=== PATIENT | female | born 1960 | race African-American/Black ===

== ENCOUNTER 2017-04-06 11:37 | Day surgery (SDC) | payer OTHER ==
[2017-04-01 11:27] VITALS: BMI 38.9
[2017-04-06] MEDS ORDERED: PROPOFOL 20 ML ONE (13:04)
[2017-04-06 14:03] VITALS: TEMP 97.5
[2017-04-06 14:41] VITALS: BP 121/68; PULSE 58
== END 2017-04-06 15:05 | disposition home or self-care (01) ==
LOC: FASU-ENDO 11:37
PROVIDERS: ATTEND Internal Medicine Gastroenterology
PROC: 0DJD8ZZ Inspection of Lower Intestinal Tract, Via Natural or Artificial Opening Endoscopic (ICD-10-PCS; principal; 2017-04-06 13:30)
DX: Z86.010 Personal history of colon polyps (principal); K57.30 Diverticulosis of large intestine without perforation or abscess without bleeding

== ENCOUNTER 2017-08-17 11:24 | Day surgery (SDC) | payer OTHER ==
[2017-08-11 12:41] VITALS: BMI 38.9
[2017-08-17] MEDS ORDERED: PROPOFOL 20 ML ONE ×2 (11:47)
[2017-08-17 15:26] VITALS: BP 123/74; PULSE 65; TEMP 97.7
== END 2017-08-17 15:30 | disposition home or self-care (01) ==
LOC: FASU-ENDO 11:24
PROVIDERS: ATTEND Internal Medicine Gastroenterology
PROC: 0DJD8ZZ Inspection of Lower Intestinal Tract, Via Natural or Artificial Opening Endoscopic (ICD-10-PCS; principal; 2017-08-17 12:59)
DX: Z12.11 Encounter for screening for malignant neoplasm of colon (principal); K64.2 Third degree hemorrhoids